=== PATIENT | male | born 1955 | race Caucasian/White ===

== ENCOUNTER 2022-08-05 07:49 | Day surgery (SDC) | payer MEDICARE ==
[2022-08-05] MEDS ORDERED: HYDROmorphone 1 MG/ML 1 ML SYRINGE IVP STA (08:16)
[2022-08-05 08:43] LABS: Basophils % (A) 0 %; Eosinophils % (A) 0 %; HCT 44.6 % (39.0-53.0); HGB 14.2 gm/dL (13.0-17.5); Lymphocytes # (A) 0.9 k/uL (1.0-4.8); Lymphocytes % (A) 11 %; MCH 29.6 pg (25.0-35.0); MCHC 31.9 g/dL (31.0-37.0); MCV 92.7 fL (80.0-100.0); Mean Platelet Volume 8.7; Monocytes # (A) 0.4 k/uL (0-1.0); Monocytes % (A) 5 %; Neutrophils % (A) 82 %; Platelet Count 201 k/uL (150-450); RBC 4.81 m/uL (4.30-5.90); RDW 12.2 % (11.5-15.5); WBC 8.5 k/uL (3.8-10.6)
--- NOTE | 2022-08-05 08:44 | ED ---
General Adult HPI - General Chief complaint: Urogenital Stated complaint: Bladder spasms Time Seen by Provider: 08/05/22 08:10 Source: patient, RN notes reviewed, old records reviewed Mode of arrival: ambulatory Limitations: no limitations - History of Present Illness Initial comments: This is a 67-year-old male who presents emergency Department with urinary retention. Patient states he had a radical prostatectomy in March after that he had reattachment of the ureter but the stitches ripped open when somebody attempted to place a Mejia. Patient then had a have surgery to reattach. Patient comes in today because he has slowly been having inability to urinate and today he can't urinate at all and he has what he believes to be urinary retention. Patient states he refuses to have a Mejia because of the damage was cause before because of all the strictures. Patient states last time had a suprapubic catheter. Patient denies any fever or chills. - Related Data Previous Rx's Medication Instructions Recorded Oxybutynin Xl [Ditropan XL] 5 mg PO DAILY #7 tab 08/05/22 Allergies Allergy/AdvReac Type Severity Reaction Status Date / Time ciprofloxacin [From Cipro] Allergy Unknown Verified 08/05/22 08:06 Latex, Natural Rubber Allergy Unknown Verified 08/05/22 08:06 Review of Systems ROS Statement: Those systems with pertinent positive or pertinent negative responses have been documented in the HPI. ROS Other: All systems not noted in ROS Statement are negative. Past Medical History Past Medical History: Cancer, Chest Pain / Angina Additional Past Medical History / Comment(s): prostate History of Any Multi-Drug Resistant Organisms: None Reported Past Surgical History: Cholecystectomy, Heart Catheterization With Stent Additional Past Surgical History / Comment(s): prostate removal Past Psychological History: No Psychological Hx Reported Smoking Status: Former smoker Past Alcohol Use History: Occasional Past Drug Use History: None Reported General Exam - General Exam Comments Initial Comments: GENERAL: Patient is well-developed and well-nourished. Patient is nontoxic and well- hydrated and is in moderate distress. ENT: Neck is soft and supple. No significant lymphadenopathy is noted. Oropharynx is clear. Moist mucous membranes. Neck has full range of motion without eliciting any pain. EYES: The sclera were anicteric and conjunctiva were pink and moist. Extraocular movements were intact and pupils were equal round and reactive to light. Eyelids were unremarkable. PULMONARY: Unlabored respirations. Good breath sounds bilaterally. No audible rales r honchi or wheezing was noted. CARDIOVASCULAR: There is a regular rate and rhythm without any murmurs gallops or rubs. ABDOMEN: Distended suprapubic region and very tender to palpation SKIN: Skin is clear with no lesions or rashes and otherwise unremarkable. NEUROLOGIC: Patient is alert and oriented x3. Cranial nerves II through XII are grossly intact. Motor and sensory are also intact. Normal speech, volume and content. Symmetrical smile. MUSCULOSKELETAL: Normal extremities with adequate strength and full range of motion. LYMPHATICS: No significant lymphadenopathy is noted PSYCHIATRIC: Normal psychiatric evaluation. Limitations: no limitations Course Vital Signs 08/05/22 08:02 Temperature 98.6 F Pulse Rate 77 Respiratory 20 Rate Blood Pressure 133/82 O2 Sat by Pulse 100 Oximetry Medical Decision Making - Medical Decision Making I spoke with Dr. Rizo and he agreed to come see the patient when he gets a surgery which will be approximately 2 hours. He told me to inform the patient that there would be no suprapubic catheter placed Dr. Rizo came down and saw the patient and was going to take the patient to OR - Lab Data Result diagrams: 08/05/22 08:32 08/05/22 08:32 Lab Results 08/05/22 08/05/22 08/05/22 Range/Units 08:32 08:32 08:32 WBC 8.5 (3.8-10.6) k/uL RBC 4.81 (4.30-5.90) m/uL Hgb 14.2 (13.0-17.5) gm/dL Hct 44.6 (39.0-53.0) % MCV 92.7 (80.0-100.0) fL MCH 29.6 (25.0-35.0) pg MCHC 31.9 (31.0-37.0) g/dL RDW 12.2 (11.5-15.5) % Plt Count 201 (150-450) k/uL MPV 8.7 Neutrophils % 82 % Lymphocytes % 11 % Monocytes % 5 % Eosinophils % 0 % Basophils % 0 % Neutrophils # 7.0 (1.3-7.7) k/uL Lymphocytes # 0.9 L (1.0-4.8) k/uL Monocytes # 0.4 (0-1.0) k/uL Eosinophils # 0.0 (0-0.7) k/uL Basophils # 0.0 (0-0.2) k/uL PT 17.7 H (9.0-12.0) sec INR 1.7 H (<1.2) APTT 29.7 (22.0-30.0) sec Sodium 141 (137-145) mmol/L Potassium 4.8 (3.5-5.1) mmol/L Chloride 105 (98-107) mmol/L Carbon Dioxide 22 (22-30) mmol/L Anion Gap 14 mmol/L BUN 28 H (9-20) mg/dL Creatinine 0.95 (0.66-1.25) mg/dL Est GFR (CKD-EPI)AfAm >90 (>60 ml/min/1.73 sqM) Est GFR (CKD-EPI)NonAf 82 (>60 ml/min/1.73 sqM) Glucose 119 H (74-99) mg/dL Calcium 9.9 (8.4-10.2) mg/dL Total Bilirubin 0.8 (0.2-1.3) mg/dL AST 47 (17-59) U/L ALT 40 (4-49) U/L Alkaline Phosphatase 94 (38-126) U/L Total Protein 7.6 (6.3-8.2) g/dL Albumin 5.0 (3.5-5.0) g/dL Disposition Clinical Impression: Urinary retention Disposition: HOME SELF-CARE Condition: Good Is patient prescribed a controlled substance at d/c from ED?: No Time of Disposition: 08:36
[2022-08-05] MEDS ORDERED: KETOROLAC 15 MG/ML 1 ML VIAL IVP STA (08:49)
[2022-08-05 08:50] LABS: INR 1.7 (<1.2); Partial Thromboplastin Time 29.7 sec (22.0-30.0); Prothrombin Time 17.7 sec (9.0-12.0)
[2022-08-05] MEDS ORDERED: LORazepam 2 MG/ML INJ IV STA (08:51)
[2022-08-05 09:02] LABS: ALT 40 U/L (4-49); AST 47 U/L (17-59); African American GFR (CKD) >90 (>60 ml/min/1.73 sqM); Alkaline Phosphatase 94 U/L (38-126); Anion Gap 14 mmol/L; Blood Urea Nitrogen 28 mg/dL (9-20); Calcium 9.9 mg/dL (8.4-10.2); Carbon Dioxide 22 mmol/L (22-30); Chloride 105 mmol/L (98-107); Glucose 119 mg/dL (74-99); Non-African American GFR(CKD) 82 (>60 ml/min/1.73 sqM); Potassium 4.8 mmol/L (3.5-5.1); Sodium 141 mmol/L (137-145); Total Bilirubin 0.8 mg/dL (0.2-1.3); Total Protein 7.6 g/dL (6.3-8.2)
--- NOTE | 2022-08-05 10:45 | P.HPIHPCON ---
History of Present Illness H&P Date: 08/05/22 Chief Complaint: urinary retention This is a 67 yo male with hx of prostate cancer. Underwent a robotic prostatectomy in March 2022 in [place]. Postoperative course complicated by anastomotic breakdown, requiring reoperation and repair. 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 Patient lives in [place] but he was visiting [place]. Since this morning been having difficulty voiding, only able to dribble small amount of urine. Denies any dysuria or gross hematuria. No previous history of retention. He is having some severe abdominal pain secondary to his retention. He is scheduled to undergo a cystoscopy and urethral dilation next week in [place]. Of note he is on Coumadin for mechanical heart valve, his INR was checked this morning and it was a 1.7. Consent for Procedure: I have explained the operation/procedure to the patient, including the risks, benefits, side effects, alternative therapies (including not receiving the proposed treatment or service), the likelihood of the patient achieving his/her goals, and potential recuperation problems for the procedure/sedation/analgesia, as well as any blood products, if indicated. I also explained to the patient the risks, benefits and side effects of the alternatives, as well as the risks related to not receiving the proposed procedure, care, treatment, or services. - Constitutional Constitutional: Denies chills, Denies fever - EENT Ears, nose, mouth and throat: Denies headache, Denies sore throat - Cardiovascular Cardiovascular: Denies chest pain, Denies shortness of breath - Respiratory Respiratory: Denies cough, Denies 7 - Gastrointestinal Gastrointestinal: Reports abdominal pain - Genitourinary (Female) Genitourinary: Denies flank pain, Denies hematuria - Genitourinary (Male) Genitourinary: Reports urinary retention, Denies hematuria - Neurological Neurological: Denies numbness, Denies weakness Past Medical History Past Medical History: Cancer, Chest Pain / Angina Additional Past Medical History / Comment(s): prostate History of Any Multi-Drug Resistant Organisms: None Reported Past Surgical History: Cholecystectomy, Heart Catheterization With Stent Additional Past Surgical History / Comment(s): prostate removal Past Psychological History: No Psychological Hx Reported Smoking Status: Former smoker Past Alcohol Use History: Occasional Past Drug Use History: None Reported Medications and Allergies Allergies Allergy/AdvReac Type Severity Reaction Status Date / Time ciprofloxacin [From Cipro] Allergy Unknown Verified 08/05/22 08:06 Latex, Natural Rubber Allergy Unknown Verified 08/05/22 08:06 Surgical - Exam Vital Signs Temp Pulse Resp BP Pulse Ox 98.6 F 77 20 133/82 100 08/05/22 08:02 08/05/22 08:02 08/05/22 08:02 08/05/22 08:02 08/05/22 08:02 - General moderate distress, severe pain - Eyes normal ocular movement, no pale - ENT normal nares, normal mucosa - Respiratory normal expansion, normal respiratory effort - Abdomen Palpable bladder, tenderness in the suprapubic region. - Genitourinary normal penis with no external lesions, testicles present - Psychiatric oriented to time, oriented to person, oriented to place Results - Labs 08/05/22 08:32 08/05/22 08:32 Abnormal Lab Results - Last 24 Hours (Table) 08/05/22 08/05/22 08/05/22 Range/Units 08:32 08:32 08:32 Lymphocytes # 0.9 L (1.0-4.8) k/uL PT 17.7 H (9.0-12.0) sec INR 1.7 H (<1.2) BUN 28 H (9-20) mg/dL Glucose 119 H (74-99) mg/dL Diabetes panel 08/05/22 Range/Units 08:32 Sodium 141 (137-145) mmol/L Potassium 4.8 (3.5-5.1) mmol/L Chloride 105 (98-107) mmol/L Carbon Dioxide 22 (22-30) mmol/L BUN 28 H (9-20) mg/dL Creatinine 0.95 (0.66-1.25) mg/dL Glucose 119 H (74-99) mg/dL Calcium 9.9 (8.4-10.2) mg/dL AST 47 (17-59) U/L ALT 40 (4-49) U/L Alkaline Phosphatase 94 (38-126) U/L Total Protein 7.6 (6.3-8.2) g/dL Albumin 5.0 (3.5-5.0) g/dL Calcium panel 08/05/22 Range/Units 08:32 Calcium 9.9 (8.4-10.2) mg/dL Albumin 5.0 (3.5-5.0) g/dL Pituitary panel 08/05/22 Range/Units 08:32 Sodium 141 (137-145) mmol/L Potassium 4.8 (3.5-5.1) mmol/L Chloride 105 (98-107) mmol/L Carbon Dioxide 22 (22-30) mmol/L BUN 28 H (9-20) mg/dL Creatinine 0.95 (0.66-1.25) mg/dL Glucose 119 H (74-99) mg/dL Calcium 9.9 (8.4-10.2) mg/dL Adrenal panel 08/05/22 Range/Units 08:32 Sodium 141 (137-145) mmol/L Potassium 4.8 (3.5-5.1) mmol/L Chloride 105 (98-107) mmol/L Carbon Dioxide 22 (22-30) mmol/L BUN 28 H (9-20) mg/dL Creatinine 0.95 (0.66-1.25) mg/dL Glucose 119 H (74-99) mg/dL Calcium 9.9 (8.4-10.2) mg/dL Total Bilirubin 0.8 (0.2-1.3) mg/dL AST 47 (17-59) U/L ALT 40 (4-49) U/L Alkaline Phosphatase 94 (38-126) U/L Total Protein 7.6 (6.3-8.2) g/dL Albumin 5.0 (3.5-5.0) g/dL Assessment and Plan Assessment: 67-year-old male status post robotic prostatectomy at [place], complicated by anastomotic leak and a bladder neck contracture. Present to the ER with 1 L urinary retention secondary to his bladder neck contracture. I attempted to pass a 12-Danish catheter but was unsuccessful secondary to the bladder neck contracture. Discussed with the family the next would be to proceed with cy stoscopy and urethral dilation. Discussed with him the risk and the benefit of the procedure. Discussed, if I'm unable to place a catheter cystoscopically then the next would be to proceed with a suprapubic tube placement. Discussed with him given his previous prostatectomy there is a risk of bowel injury with suprapubic tube placement. -OR for Cystoscopy, urethral dilation, possible suprapubic tube placement Time with Patient: Greater than 30
[2022-08-05] MEDS ORDERED: IV FLUID CONTINUATION 1,000 ML IV ONE (11:06)
[2022-08-05] MEDS ORDERED: ONDANSETRON 4 MG/2 ML VIAL ONE (11:15)
[2022-08-05] MEDS ORDERED: DEXAMETHASONE SOD PHOSPHATE 4 MG/ML 1 ML VIAL IVP ONE (11:16)
[2022-08-05] MEDS ORDERED: ONDANSETRON 4 MG/2 ML VIAL IVP ONE (11:16)
[2022-08-05] MEDS ORDERED: MIDAZOLAM 2 MG/2 ML VIAL ONE (11:18)
[2022-08-05] MEDS ORDERED: LIDOCAINE 2% INJ 20 MG/ML (2 ML VIAL) ONE (11:18)
[2022-08-05] MEDS ORDERED: PROPOFOL 10 MG/ML 20 ML VIAL IV ONE (11:18)
[2022-08-05] MEDS ORDERED: fentaNYL (PF) 50 MCG/ML 2 ML AMP ONE (11:18)
[2022-08-05] MEDS ORDERED: SUCCINYLCHOLINE CHLORIDE 200 MG/10 ML VIAL IV ONE (11:18)
[2022-08-05] MEDS ORDERED: SODIUM CHLORIDE 0.9% 100 ML with ceFAZolin 2,000 MG IV ONE ×2 (11:22)
[2022-08-05 11:59] VITALS: RESP 16; TEMP 96.9
--- NOTE | 2022-08-05 12:24 | P.OP ---
Date of Procedure: 08/05/22 Preoperative Diagnosis: Urinary retention, bladder stricture Postoperative Diagnosis: same Procedure(s) Performed: Cystoscopy, urethral dilation Implants: none Anesthesia: RACHELLEA Surgeon: Joey Rizo Estimated Blood Loss (ml): 5 Pathology: none sent Condition: stable Disposition: PACU Indications for Procedure: This is a 67 yo male with hx of prostate cancer. Underwent a robotic prostatectomy in March 2022 in [place]. Postoperative course complicated by anastomotic breakdown, requiring reoperation and repair. 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 Patient lives in [place] but he was visiting [place]. Since this morning been having difficulty voiding, only able to dribble small amount of urine. Denies any dysuria or gross hematuria. No previous history of retention. He is having some severe abdominal pain secondary to his retention. He is scheduled to undergo a cystoscopy and urethral dilation next week in [place]. Of note he is on Coumadin for mechanical heart valve, his INR was checked this morning and it was a 1.7. Operative Findings: Bladder neck contracture Description of Procedure: Patient brought to the operating room, general anesthesia was induced. He was prepped and draped in sterile fashion and placed in dorsal lithotomy position. Cystoscopy fitted with 21-Ukrainian sheath was inserted per urethra, the cystoscope was advanced to the bladder neck where a tight bladder neck contracture was encountered, it measured approximately 10-Ukrainian. Next a sensor wire was advanced through the cystoscope, and the scope was removed with the wire in place. next the Bladder neck contracture was dilated using S-shaped dilators starting at 10-Ukrainian and going up to 20-Ukrainian. Next a 14-Ukrainian catheter was passed over the wire into the bladder with return of clear urine. The bladder was irrigated without any difficulty. Patient tolerated the procedure and was taken to recovery in stable condition. He was advised to follow up with his urologist in [place] in 1 week
[2022-08-05 16:25] VITALS: BP 105/67; PULSE 65
== END 2022-08-05 16:49 | disposition home or self-care (01) ==
LOC: EC 07:49 → ORWHC2ENDO 07:49 → EC 10:40 → EDSTATUS 16:30 → ORWHC2ENDO 16:49
PROVIDERS: ATTEND Emergency Medicine
DX: N32.0 Bladder-neck obstruction (principal); R33.9 Retention of urine, unspecified; I10 Essential (primary) hypertension; Z85.46 Personal history of malignant neoplasm of prostate; Z90.79 Acquired absence of other genital organ(s); I20.9 Angina pectoris, unspecified; Z90.49 Acquired absence of other specified parts of digestive tract; Z95.5 Presence of coronary angioplasty implant and graft; Z87.891 Personal history of nicotine dependence; Z79.01 Long term (current) use of anticoagulants; Z79.899 Other long term (current) drug therapy; Z91.040 Latex allergy status
CPT/HCPCS: 52281; 51798; 36415; 80053; 85025; 85610; 85730; C1769; J2250; J0330; J2060; J1100; J2405; J0690; J3010; J1170; J1885; J2704; J2001

== ENCOUNTER → 2025-04-03 | Outpatient (CLI) | payer MEDICARE ==
--- NOTE | 2025-04-06 12:17 | PE ---
EXAMINATION TYPE: PET CT fusion skull to thigh DATE OF EXAM: 04/03/2025 CLINICAL INDICATION:Male, 70 years old with history of C61 prostate ca; TECHNIQUE: Following the intravenous administration of 5.18 mCi of Ga-68 Illuccix (PSMA), whole bod y images are performed from the skull vertex to the midthigh. Images are reviewed on the computer in the coronal, axial, and sagittal planes. Reconstructed rotating images are created on independent [employer] orkstation and reviewed on the computer. A non-contrast CT is performed in conjunction with the PET scan. CT DLP: 738.4 mGycm, Automated exposure control for dose reduction was used. COMPARISON: CT 11/10/2013, PET/CT None, MRI: None FINDINGS: Mediastinal SUV mean is 1.3. Hepatic parenchyma SUV mean is 4.0. SKULL BASE AND NECK: No suspicious radiotracer activity. CHEST, MEDIASTINUM, AND HILAR REGION: No suspicious radiotracer activity. ABDOMEN AND PELVIS: Postsurgical changes from prostatectomy. No suspicious radiotracer activity within the prostatectomy bed. MUSCULOSKELETAL STRUCTURES: Left hemisacrum 1.2 cm sclerotic focus with focal radiotracer activity demonstrating a maximum SUV of 15.9. Posterior right second rib 0.9 cm sclerotic focus with focal radiotracer activity demonstrating a max imum SUV of 8.5. Left lateral third rib sclerotic 1.1 cm focus with focal radiotracer activity demonstrating a maximum SUV of 37.6. Focal radiotracer uptake identified within the right aspect of the T12 vertebral body with a maximum SUV of 18.7. OTHER CT: Mild atherosclerotic calcification of the aorta and its branches. Postsurgical changes from aortic valvular replacement. Sternotomy wires. Mild bilateral gynecomastia. Coronary arterial calcif ications and stent. Mildly dilated main pulmonary artery measuring up to 3.5 cm which can be seen wit h pulmonary arterial hypertension. Few scattered punctate calcified granulomas. Gallbladder surgicall y absent. Right renal exophytic 7.4 cm cyst with thin calcified wall. Left renal inferior pole 3.6 cm cyst with peripherally calcified wall. These have both decreased in size from prior examination and demonstrate simple fluid attenuation. No follow-up recommended. Stranding/scarring within the anterio r abdominal wall subcutaneous tissues. Extensive pancolonic diverticulosis. Pelvic phleboliths. IMPRESSION: Postsurgical changes from prostatectomy without evidence for local recurrence. However there are appr oximately 4 metastatic osseous lesions demonstrating radiotracer uptake consistent with prostate meta stasis. [facility], , 04/06/2025 12:15 PM
== END | disposition home or self-care (01) ==
LOC: RADPETMAIN 07:36
DX: C61 Malignant neoplasm of prostate (principal); C79.51 Secondary malignant neoplasm of bone; Z98.890 Other specified postprocedural states
CPT/HCPCS: 78815; A9596